=== PATIENT | male | born 1980 | race Caucasian/White ===

== ENCOUNTER 2016-07-10 19:22 | Emergency (ER) | payer OTHER ==
[2016-07-10 20:13] VITALS: BP 138/82
--- NOTE | 2016-07-10 20:37 | UC ---
Lower Extremity/Ankle HPI - HPI Summary HPI Summary: 35 yo male was shovelling snow today for 2 hours when he came inside he developed crampy left post thigh pain /10 pain - History of Current Complaint Chief Complaint: UCLowerExtremity Stated Complaint: LEFT LEG PAIN Time Seen by Provider: 07/10/16 20:18 Hx Obtained From: Patient Onset/Duration: Gradual Onset, Lasting Hours Severity Initially: Moderate Severity Currently: Mild Pain Intensity: 3 Pain Scale Used: 0-10 Numeric Aggravating Factor(s): Standing, Ambulation Alleviating Factor(s): Rest Able to Bear Weight: Yes - Allergies/Home Medications Allergies/Adverse Reactions: Allergies Allergy/AdvReac Type Severity Reaction Status Date / Time No Known Allergies Allergy Verified 07/10/16 20:04 PMH/Surg Hx/FS Hx/Imm Hx Previously Healthy: Yes Endocrine History Of: Denies: Diabetes, Thyroid Disease Cardiovascular History Of: Denies: Cardiac Disorders, Hypertension Respiratory History Of: Denies: Asthma - Surgical History Surgical History: Yes Surgery Procedure, Year, and Place: Jaw Surgery to correct overbite, 1997, [facility]. LEFT KNEE INJURY, FRACTURED [place] - Family History Known Family History: Positive: Hypertension, Other - no fhx DVT - Social History Alcohol Use: None Substance Use Type: None Smoking Status (MU): Never Smoked Tobacco Review of Systems Constitutional: Negative Skin: Negative Eyes: Negative ENT: Negative Respiratory: Negative Cardiovascular: Negative Gastrointestinal: Negative Genitourinary: Negative Motor: Negative Neurovascular: Negative Musculoskeletal: Myalgia Neurological: Negative Psychological: Negative All Other Systems Reviewed And Are Negative: Yes Physical Exam Triage Information Reviewed: Yes Appearance: Well-Appearing, No Pain Distress, Well-Nourished Vital Signs: Initial Vital Signs Temp 98.4 F 07/10/16 20:04 Pulse 63 07/10/16 20:04 Resp 16 07/10/16 20:04 BP 138/82 07/10/16 20:04 Pulse Ox 100 07/10/16 20:04 Vital Signs Reviewed: Yes Eyes: Positive: Conjunctiva Clear ENT: Positive: Hearing grossly normal. Negative: Nasal congestion, Nasal drainage, Trismus, Muffled/hoarse voice Dental: Negative: Dental Fracture @, Abscess @ Neck: Positive: Supple, Nontender Respiratory: Positive: Lungs clear, Normal breath sounds, No respiratory distress Cardiovascular: Positive: RRR, No Murmur Musculoskeletal: Positive: ROM Intact, No Edema, Other: - see image/(-) Homans, normal gait, no back pain (-) DVT Neurological: Positive: Alert Psychological Exam: Normal Skin Exam: Normal Lower Extremity Course/Dx - Differential Dx/Diagnosis Provider Diagnoses: left thigh strain Discharge - Discharge Plan Condition: Stable Disposition: HOME Patient Education Materials: Muscle Strain (ED) Referrals: Diaz Hankins MD [Primary Care Provider] - If Needed Additional Instructions: tylenol or advil for pain ice twice daily recheck for worsening symptoms or it you leg swells/becomes red or feels hot Images Front/Back of Body, Lg ([place]): 1 - 10 cm above superior aspect of patella. R-51cm L-51cm 2 - 10 cm below tibial tubercle. right 37 cm left 38cm 3 - 20cm below tibal tubercle. right 26.5 cm left 27 cm 4 - area of pain 5 - occasionally radiates here
== END 2016-07-10 20:43 | disposition home or self-care (01) ==
LOC: UCCORT 19:22
DX: S76.912A Strain of unspecified muscles, fascia and tendons at thigh level, left thigh, initial encounter (principal); Y93.H1 Activity, digging, shoveling and raking; Y92.9 Unspecified place or not applicable
CPT/HCPCS: 99211; G0463

== ENCOUNTER 2017-02-15 17:55 | Emergency (ER) | payer OTHER ==
[2017-02-15 18:41] VITALS: BP 130/83
--- NOTE | 2017-02-15 18:46 | UC ---
Back Pain HPI - HPI Summary HPI Summary: 36 YEAR OLD MALE PRESENTS WITH COMPLAINS OF LEFT LOWER BACK AND LEG PAIN. - History of Current Complaint Chief Complaint: UCBackPain Stated Complaint: left back/leg pain Time Seen by Provider: 02/15/17 18:41 Hx Obtained From: Patient Onset/Duration: Sudden Onset Timing: Constant Severity Initially: Moderate Severity Currently: Moderate Pain Scale Used: 0-10 Numeric - 5 - Allergies/Home Medications Allergies/Adverse Reactions: Allergies Allergy/AdvReac Type Severity Reaction Status Date / Time No Known Allergies Allergy Verified 02/15/17 18:36 PMH/Surg Hx/FS Hx/Imm Hx - Surgical History Surgical History: Yes Surgery Procedure, Year, and Place: Jaw Surgery to correct overbite, 1997, [facility] – [place]. LEFT KNEE INJURY, FRACTURED [place] - Family History Known Family History: Positive: Hypertension, Other - no fhx DVT - Social History Alcohol Use: None Substance Use Type: None Smoking Status (MU): Never Smoked Tobacco Review of Systems Constitutional: Negative Skin: Negative Eyes: Negative ENT: Negative Respiratory: Negative Cardiovascular: Negative Gastrointestinal: Negative Genitourinary: Negative Motor: Negative Neurovascular: Negative Musculoskeletal: Other: - LEFT BACK PAIN Neurological: Negative Psychological: Negative All Other Systems Reviewed And Are Negative: Yes Physical Exam Triage Information Reviewed: Yes Appearance: Well-Appearing Vital Signs: Initial Vital Signs Temp 37.1 C 02/15/17 18:37 Pulse 59 02/15/17 18:37 Resp 16 02/15/17 18:37 BP 130/83 02/15/17 18:37 Pulse Ox 99 02/15/17 18:37 Eye Exam: Normal ENT Exam: Normal Dental Exam: Normal Neck exam: Normal Neck: Positive: 1 Respiratory Exam: Normal Cardiovascular Exam: Normal Abdominal Exam: Normal Musculoskeletal: Positive: Other: - LEFT BACK PAIN Neurological Exam: Normal Psychological Exam: Normal Skin Exam: Normal Back Pain Course/Dx - Differential Dx/Diagnosis Provider Diagnoses: LEFT BACK PAIN Discharge - Discharge Plan Condition: Stable Disposition: HOME Prescriptions: Meloxicam [Mobic] 7.5 mg PO BID #30 tab Methocarbamol TAB* [Robaxin 500 MG TAB*] 500 mg PO TID PRN #30 tab PRN Reason: Spasms - Back Patient Education Materials: Muscle Spasm (ED) Referrals: Diaz Hankins MD [Primary Care Provider] -
== END 2017-02-15 18:57 | disposition home or self-care (01) ==
LOC: UCCORT 17:55
DX: M54.5 Low back pain (principal); M79.605 Pain in left leg
CPT/HCPCS: 99212; G0463

== ENCOUNTER 2017-09-24 09:41 | Emergency (ER) | payer OTHER ==
[2017-09-24 10:03] VITALS: BP 122/82
--- NOTE | 2017-09-24 10:30 | UC ---
Head Injury HPI - HPI Summary HPI Summary: passed out one day ago fainted as he was playing basket ball, went to sit down , and crashed on the floor , hit the top of his head - History Of Current Complaint Chief Complaint: UCHeadInjury Stated Complaint: RINGING IN EAR/S/P FALL-HEAD INJURY Time Seen by Provider: 09/24/17 10:02 Hx Obtained From: Patient Mechanism Of Injury: sycopal episode , fell and hit his head Onset/Duration: Sudden Onset Severity Currently: Moderate Severity Initially: Moderate Pain Intensity: 0 Character: Dull Alleviating Factor(s): Nothing Associated Signs And Symptoms: Positive: LOC (Time In Secs./Mins/Hrs) - 3, Confusion. Negative: Memory Loss, Seizure, Epistaxis, Dental Malocclusion, Neck Pain, Nausea, Vomiting - Allergies/Home Medications Allergies/Adverse Reactions: Allergies Allergy/AdvReac Type Severity Reaction Status Date / Time No Known Allergies Allergy Verified 09/24/17 09:53 Home Medications: Home Medications NK [No Home Medications Reported] 09/24/17 [History Confirmed 09/24/17] PMH/Surg Hx/FS Hx/Imm Hx Neurological History: Migraine - Surgical History Surgical History: Yes Surgery Procedure, Year, and Place: Jaw Surgery to correct overbite, 1997, [facility] – [place]. LEFT KNEE INJURY, FRACTURED [place] - Family History Known Family History: Positive: Hypertension, Other - no fhx DVT - Social History Alcohol Use: None Substance Use Type: None Smoking Status (MU): Never Smoked Tobacco Review of Systems Constitutional: Negative Skin: Negative Eyes: Negative ENT: Negative Respiratory: Negative Cardiovascular: Negative Gastrointestinal: Negative Genitourinary: Negative Is Patient Immunocompromised?: No All Other Systems Reviewed And Are Negative: Yes Physical Exam Triage Information Reviewed: Yes Appearance: Well-Appearing, No Pain Distress, Well-Nourished Vital Signs: Initial Vital Signs Temp 98.2 F 09/24/17 09:54 Pulse 64 09/24/17 09:54 Resp 18 09/24/17 09:54 BP 122/82 09/24/17 09:54 Pulse Ox 98 09/24/17 09:54 Vital Signs Reviewed: Yes Eye Exam: Normal Eyes: Positive: Conjunctiva Clear ENT: Positive: Normal ENT inspection, Hearing grossly normal, Pharynx normal Neck exam: Normal Neck: Positive: Supple, Nontender, No Lymphadenopathy Respiratory: Positive: Chest non-tender, Lungs clear, Normal breath sounds, No respiratory distress Cardiovascular: Positive: RRR, No Murmur, Pulses Normal Abdominal Exam: Normal Abdomen Description: Positive: Nontender, Soft. Negative: CVA Tenderness (R), CVA Tenderness (L), Distended, Guarding Bowel Sounds: Positive: Present Musculoskeletal Exam: Normal Musculoskeletal: Positive: Strength Intact, ROM Intact, No Edema Neurological Exam: Normal Neurological: Positive: Alert Skin Exam: Normal UC Physical Exam Vital Signs On Initial Exam: Initial Vitals Temp Pulse Resp BP Pulse Ox 98.2 F 64 18 122/82 98 09/24/17 09:54 09/24/17 09:54 09/24/17 09:54 09/24/17 09:54 09/24/17 09:54 - Neurological Exam Neurological: Normal, Sensory/Motor Intact, Alert, Oriented to Person Place, Time, CN Intact II-III, Normal Gait, Speech Normal Diagnostics - EKG Cardiac Rate: NL Cardiac Rhythm: Sinus: Normal Ectopy: None ST Segment: Normal Head Injury Course/Dx - Differential Dx/Diagnosis Provider Diagnoses: syncope. contusion head. head injury Discharge - Sign-Out/Discharge Documenting (check all that apply): Discharge/Admit/Transfer - Discharge Plan Condition: Stable Disposition: HOME Patient Education Materials: Syncope (ED), Head Injury (ED) Referrals: Diaz Hankins MD [Primary Care Provider] - 5 Days - Billing Disposition and Condition Condition: STABLE Disposition: HOME
== END 2017-09-24 10:34 | disposition home or self-care (01) ==
LOC: UCCORT 09:41
DX: R55 Syncope and collapse (principal); S00.93XA Contusion of unspecified part of head, initial encounter; W19.XXXA Unspecified fall, initial encounter; Y93.9 Activity, unspecified; Y92.9 Unspecified place or not applicable
CPT/HCPCS: 93005; 99211; G0463